=== PATIENT | female | born 2000 | race Caucasian/White ===

== ENCOUNTER 2023-05-07 09:14 | Outpatient (REF) | payer MEDICAID, SELFPAY ==
--- NOTE | 2023-05-07 09:00 | PAPFT_PTH ---
PATIENT: Nemo Spence LOC: [facility] U#:[id number] AGE/SX: 22/F ROOM: RE05/07/[address]: NAIN: 2000 BED: DIS: 05/07/2023 SPEC #: [id number] RECD: 05/07/23 17:54 STATUS: MADY BRANTLEY #: [id number] TRENA: 05/07/23 09:[address]: Latoya Ellison DEPT: [facility] Cytology RECD BY: Rosalee Mcgee Tissues: 1 - CX/ENDOCX FOR PAP SMEARS Procedures: PAP THIN PREP/[facility] Screening Comments: [id number]
== END 2023-05-07 09:15 | disposition home or self-care (01) ==
LOC: NCHCN 09:14
PROVIDERS: Visit Provider Family Medicine
DX: Z00.00 Encounter for general adult medical examination without abnormal findings (principal); Z12.4 Encounter for screening for malignant neoplasm of cervix
CPT/HCPCS: 88142